=== PATIENT | female | born 1985 | race Caucasian/White ===

== ENCOUNTER 2024-12-07 13:02 | Inpatient (IN) | payer OTHER, SELFPAY ==
--- OUTSIDE RECORDS SUMMARY | 2024-12-07 13:18 | XMS_ITS | Referral Summary ---
Author Organization [facility] Address [address] [place] [address] Care Team Providers Care Locomotive Pipe Fitter Name Role Phone Sophia Christiansen MD Unavailable Sophia Christiansen MD Primary Care Provide r Allergies No known active allergies Medications aspirin 81 mg enteric coated tablet Take 1 tablet (81 mg total) by mouth daily Active venlafaxine XR (EFFEXOR-XR) 37.5 mg 24 hr capsule Take 1 capsule (37.5 mg total) by mouth daily 06/01/2024 Active Active Problems Problem Noted Date Diagnosed Date Low lying placenta nos or wi thout hemorrhage, second trimester 07/26/2024 Overview (07/26/2024): 20 wk sono - breech, posterior LOW LYING placenta 1.9 cm from os, CL 4.4 cm. Plan to recheck placenta early third trimester. Anxiety with depression 05/04/2024 Overview (05/04/2024): Well controlled on Effexor History of pre-eclampsia in prior , currently 05/04/2024 Overview (05/04/2024): Plan ASA 81 mg at 12 weeks. Antepartum multigravida of advanced maternal age 1106/29/2023 Overview (06/28/2024): NIPT - low risk, female. Plan daily ASA 81 mg at 12 weeks with h/o preeclampsia. Refused influenza vaccine 11/17/2018 Anxiety 05/13/2016 Overview (07/04/2023): Effexor XR 75 mg Contusion of ankle 06/19/2004 Overview (11/25/2016): Ankle contusion Supraventricular tachycardia 06/19/2001 Overview (11/25/2016): Supraventricular tachycardia Estimated Date of Delivery Comme nts Yes 12/05/2024 Based on last me nstrual period of 02/29/2024 (Exact Date) Resolved Problems Problem Noted Date Diagnosed Date Resolved Date Missed 07/04/2023 05/31/2024 Pre-eclampsia in third trimester 05/09/2019 06/21/2019 Supervision of high-risk pre gnancy, unspecified trimester 02/19/2019 06/21/2019 Overview (02/28/2019): Consult from Dr. Sophia Christiansen. Continue routine care with Dr. Christiansen, return for growth ultrasound in 4 weeks. No further MFM visits scheduled. Poor growth affecting management of mother, antepartum 02/13/2019 06/21/2019 Overview (04/09/2019): EFW 6% with primary OB. Repeat here 29%. No evidence of IUGR. Last sono 03/28 - 47% Immunizations Immunization Administration Dates Next Due Influenza, Quadrivalent, Spl it, Preservative Free, Intramuscular 05/13/2016 Influenza, Unspecified 11/17/2018(Deferr ed: Patient Refused),11/17/2018(Deferred: Patient Refused),08/22/2017(Deferred: Patient Refused),08/22/2017(Deferred: Patient Refused) Tdap 02/26/2019,08/10/2017 Social History Tobacco Use Types Packs/Day Years Used Date Smoking Tobacco: Former Cigarettes 1 8 2 006 - 2013 Smokeless Tobacco: Never Tobacco Cessation:Counseling Given: Not Answered Comments:Smoking History Packs/day: 1 Packs Alcohol Use Standard Drinks/Week Comments Not Currently 0 (1 standard drink = 0.6 oz pur e alcohol) AUDIT-C Answer Date Recorded Frequency of Alcohol Consumption Not on file 07/05/2023 Q2: How many drinks containi ng alcohol do you have on a typical day when you are drinking? Patient does not drink Frequency of Binge Drinking Not on file 06/22 Overall Financial Resource Strain (CARDIA) Answe r Date Recorded How hard is it for you to pa y for the very basics like food, housing, medical care, and heating? Not hard at all 05/31/2024 PHQ-2 Answer Date Recorded PHQ-2 Score 0 04/12/2019 Hunger Vital Sign Answer Date Recorded Within the past 12 months, y ou worried that your food would run out before you got the money to buy more. Never true 05/31/20 24 Within the past 12 months, t he food you bought just didn't last and you didn't have money to get more. Never true 05/31/2024 PRAPARE - Transportation Answer Date Re corded In the past 12 months, has l ack of transportation kept you from medical appointments or from getting medications? No 05/22 In the past 12 months, has l ack of transportation kept you from meetings, work, or from getting things needed for daily living? No 05/31/2024 Housing Stability Vital Sign Answer Ezio e Recorded In the last 12 months, was t here a time when you were not able to pay the mortgage or rent on time? No 05/31/2024 In the past 12 months, how m any times have you moved where you were living? 1 05/31/2024 At any time in the past 12 m [facility], were you homeless or living in a custodial (including now)? No 05/31/2024 Personal Safety Answer Date Recorded Have you ever been in or are you currently in a harmful physical or emotional relationship or is someone making you feel afraid or unsafe? 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 Gender Identity Not on file Sexual Orientation Not on file Occupation Industry Job Start Date Job End Date [employer] Not on file Not on file Not on f ile Last Filed Vital Signs Vital Sign Reading Time Taken Comments Blood Pressure 110/78 07/26/2024 2:38 PM BAG MACHINE ADJUSTER Pulse 75 07/07/2023 9:30 AM BAG MACHINE ADJUSTER Temperature 36.6 C (97.8 F) 07/07/2023 8:59 AM BAG MACHINE ADJUSTER Respiratory Rate 20 07/07/2023 9:30 AM BAG MACHINE ADJUSTER Oxygen Saturation 100% 07/07/2023 8:59 AM BAG MACHINE ADJUSTER Inhaled Oxygen Concentration - - Weight 71.2 kg (157 lb) 07/26/2024 2:38 PM BAG MACHINE ADJUSTER Height 167.6 cm (5' 6 ) 07/07/2023 6:50 AM BAG MACHINE ADJUSTER Body Mass Index 25.34 07/07/2023 6:50 AM BAG MACHINE ADJUSTER Plan of Treatment Not on file Procedures Procedure Name Priority Date/Time Associated Diagnosis Comments HEPATITIS C ANTIBODY Routine 05/30/2024 2:26 PM CDT Encounter for supervision of other normal , first trimester 10 weeks gestation of PAP AND HIGH RISK HPV, REFLEX TO GENOTYPING Routine 01/24/2023 9:20 AM CDT Routine cervical smear from Last 3 Months or Most Recently Relevant to Health Maintenance Results * Hepatitis C antibody Blood (05/30/2024 2:26 PM CDT) Hep C Ab NON-REACTI VE NON-REACT CANDACE [facility] Comment: HCV antibody was non-reactive. There is no laboratory evidence of HCV infection. In most cases, no further action is required. However, if recent HCV exposure is suspected, a test for HCV RNA (test code 64854) is suggested. For additional information please refer to http://education.[employer].RedHelper/faq/GOL73j3 (This link is being provided for informational/ educational purposes only.) Blood 05/30/2024 2:26 PM CDT 05/30/2024 2:26 PM CDT Sophia Christiansen MD LAB MICROBIOLOGY - GE NERAL ORDERABLES Final Result [facility] [address] [place] [address] * Pap and High Risk HPV, reflex to Genotyping (01/24/2023 9:20 AM CDT) Thin prep (Pap test) 01/24/2023 9:20 AM CDT 01/24/2023 9:20 AM CDT Narrative PATHOLOGY CH - 01/26/2023 1:26 PM CDT [facility] Department of Pathology [address] [place] [address] Final Report with Addendum Note to Patients: This report may contain a detailed description of human tissue sent by a health care provider to the laboratory for pathologic evaluation. The content of this report is essential for diagnosis and may provide important critical findings. This information may be unfamiliar to patients to review without a medical professional present. It is advised that the patient review this report in the presence of a health care provider who can answer questions and explain the details. Patient Name: RICARDA MANZANO Address: [address] [place] [id number] Gender: F : 1985 (Age: 38) Service: Location: N : [id number] [facility] #: [id number] Patient Type: SPECIMEN Taken: 01/24/2023 Received: 01/24/2023 Accessioned:: 01/25/2023 Reported: 01/26/2023 Physician(s): MD Sophia Goldstein MD Diagnosis: SOURCE OF SPECIMEN SCREENING THIN PREP IMAGED PAP w/ HPV: STATEMENT OF ADEQUACY - Satisfactory for evaluation; endocervical/transformation zone component present GENERAL CATEGORIZATION: - Negative for intraepithelial lesion or malignancy MECHE Richmond(ASCP) Report Electronically Reviewed and Signed Out By MECHE Richmond(ASCP) 01/26/2023 13:26:31Addenda: HPV Test Interpretation NEGATIVE for types 16, 18, 31, 33, 35, 39, 45, 51, 52, 56, 58, 59, 66 and 68. Test performed utilizing Gen-Probe Aptima assay. MECHE Gan(ASCP)Report Electronically Reviewed and Signed Out By MECHE Gan(ASCP) 01/25/2023 16:42:28 Specimen(s) Received: A: SCREENING THIN PREP IMAGED PAP w/ HPV Clinical History: Contraceptive History: IUD The Pap test is a screening test used to aid in the detection of cervical cancer and its precursors. It should not be the sole means by which malignant and premalignant lesions are diagnosed. Both false negative and false positive results may occur. It also has poor sensitivity for the detection of endometrial lesions and should not be used to evaluate suspected endometrial abnormalities. For these reasons it is most important to obtain Pap tests at regular intervals. The performance characteristics of some immunohistochemical stains, fluorescence in-situ hybridization tests and immunophenotyping by flow cytometry cited in this report (if any) were determined by the Surgical Pathology Department at [facility] as part of an ongoing quality control inspector heading program and in compliance with federally mandated regulations drawn from the Clinical Laboratory Improvement Act of 1988 (CLIA '88). Some of these tests rely on the use of analyte specific reagents and are subject to specific labeling requirements by the US Food and Drug Administration. Such diagnostic tests may only be performed in a facility that is certified by the Department of Health and Human Services as a high complexity laboratory under CLIA '88. The FDA has determined that such clearance or approval is not necessary. This test is used for clinical purposes. It should not be regarded as investigational or for research. Nevertheless, federal rules concerning the medical use of analyte specific reagents require that the following disclaimer be attached to the report: This test was developed and its performance characteristics determined by the Surgical Pathology Department [facility]. It has not been cleared or approved by the U. S. Food and Drug Administration. Sophia Christiansen MD LAB CYTOLOGY ORDERABL ES Final Result PATHOLOGY [address] [place] [address] from Last 3 Months or Most Recently Relevant to Health Maintenance Insurance [facility] Advance Directives For more information, please contact: [phone] * Full Code (Latest Code Status on File) Date Activated Date Inactivated Comments 05/10/2019 2:47 AM 05/12/2019 4:28 PM * Full Code Date Activated Date Inactivated Comments 05/09/2019 3:48 PM 05/10/2019 2:47 AM Full CPR in case of cardiopulmonary arrest Care Teams Locomotive Pipe Fitter Relationship Specialty Start Date End Date Sophia Christiansen MD [address] [address] PCP - General Obstetrics and Gynecology 01/03/22 Sophia Christiansen MD [address] [address] Oil Processing Technician Obstetrics and Gynecology 02/16/19
--- OUTSIDE RECORDS SUMMARY | 2024-12-07 13:18 | XMS_ITS | Encounter Summary ---
Author Organization [facility] Address [address] [place] [address] Phone Care Team Providers Care Filter Operator Name Role Phone Arnulfo To MD Primary Care Provider + [phone] Sophia Christiansen MD Unavailable [phone] Sophia Christiansen MD Primary Care Provide r Encounter Details Date Type Department Care Team (Late st Contact Info) Description 11/28/2017 Orders Only [facility] ProviderRenan MD [address] [place] [address] Social History Tobacco Use Types Packs/Day Years Used Date Smoking Tobacco: Former Cigarettes 1 8 2013 Smokeless Tobacco: Never Comments:Smoking History Pac ks/day: 1 Packs Alcohol Use Standard Drinks/Week Comments Yes 0 (1 standard drink = 0.6 oz pur e alcohol) Comments No Sex and Gender Information Value Date Recorded Sex Assigned at Not on file Legal Sex Female 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 us Historical Provider LAB CYTOLOGY ORDERABLES F inal Result documented in this encounter Visit Diagnoses Not on filedocumented in this encounter Care Teams Filter Operator Relationship Specialty Start Date End Date Arnulfo To MD [address] [place] [address] PCP - General 05/13/16 01/02/22 Sophia Christiansen MD [address] [address] PCP - General Obstetrics and Gynecology 01/03/22 Sophia Christiansen MD [address] [address] Manager Scientific Obstetrics and Gynecology 02/16/19 documented as of this encounter
--- OUTSIDE RECORDS SUMMARY | 2024-12-07 13:18 | XMS_ITS | Encounter Summary ---
Author Organization [facility] [facility] Address [address] [place] [address] Phone Care Team Providers Care Double Spindle Shaper Operator Name Role Phone Arnulfo To MD Primary Care Provider + [phone] Sophia Christiansen MD Unavailable [phone] Sophia Christiansen MD Primary Care Provide r Encounter Details Date Type Department Care Team (Late st Contact Info) Description 09/22/2017 Orders Only [facility] ProviderRenan MD [address] [place] [address] Social History Tobacco Use Types Packs/Day Years Used Date Smoking Tobacco: Former Cigarettes 1 8 2 2013 Smokeless Tobacco: Never Comments:Smoking History Pac ks/day: 1 Packs Alcohol Use Standard Drinks/Week Comments Yes 0 (1 standard drink = 0.6 oz pur e alcohol) Comments Yes Sex and Gender Information Value Date Recorded Sex Assigned at Not on file Legal Sex Female 11:06 AM MANAGER TRACK Gender Identity Not on file Sexual Orientation Not on file 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 us Historical Provider LAB BLOOD ORDERABLES Shivani l Result documented in this encounter Visit Diagnoses Not on filedocumented in this encounter Care Teams Double Spindle Shaper Operator Relationship Specialty Start Date End Date Arnulfo To MD [address] [place] [address] PCP - General 05/13/16 01/02/22 Sophia Christiansen MD [address] [address] PCP - General Obstetrics and Gynecology 01/03/22 Sophia Christiansen MD [address] [place] [address] Photoengraving Retoucher Obstetrics and Gynecology 02/16/19 documented as of this encounter
--- OUTSIDE RECORDS SUMMARY | 2024-12-07 13:18 | XMS_ITS | Clinical Summary ---
Author Organization [facility] [facility] Address [address] [place] [address] Phone Care Team Providers Care Principal Investigator Name Role Phone Provider, None Primary Care Provider Unavailabl e Allergies No known active allergies Medications Vit-Fe Fumarate-FA ( VITAMIN PO) Take 1 Tab by mouth daily. Active HYDROcodone-kady taminophen (NORCO) 5-325 MG Tablet Take 1-2 Tabs by mouth every 6 hours as needed for Pain. 10 Tab 8 Active Additional Information Patient not taking.Reported on 03/06/2023 ibuprofen (MOTRIN) 600 MG Tablet Take 1 Tab by mouth every 6 hours as needed for Pain. 30 Tab 8 Active venlafaxine (EFFEXOR-XR) 75 MG CAPSULE SR 24 HR Take 75 mg by mouth. 2 Active Active Problems No known active problems Immunizations Immunization Administration Dates Next Due TDAP Vaccine 08/10/2017 Family History Medical History Relation Name Comments Cancer Father Heart Disease Father Hypertension Father Hypertension Mother Stroke Mother Relation Name Status Comments Father Mother Social History Tobacco Use Types Packs/Day Years Used Date Smoking Tobacco: Former Cigarettes Q uit: 08/22/2013 Smokeless Tobacco: Never Tobacco Cessation:Counseling Given: No Alcohol Use Standard Drinks/Week Comments Yes 0 (1 standard drink = 0.6 oz pur e alcohol) Sexually Active Control Partners Comments Yes Male Comments No Sex and Gender Information Value Date Recorded Sex Assigned at Not on file Legal Sex Female 12:35 PM CDT Gender Identity Not on file Sexual Orientation Not on file Last Filed Vital Signs Vital Sign Reading Time Taken Comments Blood Pressure 120/78 03/06/2023 10:29 AM CDT Pulse 85 03/06/2023 10:29 AM CDT Temperature 37.2 C (99 F) 03/06/2023 10:29 AM CDT Respiratory Rate 18 03/06/2023 10:29 AM CDT Oxygen Saturation 96% 03/06/2023 10:29 AM CDT Inhaled Oxygen Concentration - - Weight 70.3 kg (155 lb) 10/21/2017 9:46 PM HOTEL MAINTENANCE WORKER Height 167.6 cm (5' 6 ) 10/21/2017 9:46 PM HOTEL MAINTENANCE WORKER Body Mass Index 25.02 10/21/2017 9:46 PM HOTEL MAINTENANCE WORKER Plan of Treatment Health Maintenance Due Date Last Done Comments Hepatitis C Virus (HCV) Screening 1985 Hepatitis B Immunization (1 of 3 - 19+ 3-dose series) 2005 Pap Smear 2007 Cervical Cancer Screening (CCS) 01/21/2016 HPV/Cotest 01/21/2016 Influenza Immunization (#1) 2024 05/13/2016 SARS-COV-2 Immunization (2023- season) 2024 Respiratory Syncytial Virus (RSV) Immunization (Adult) (1 - 1-dose 75+ series) 2061 DTaP/Tdap/Td Immunization Discontinued 2018, 08/10/2017 Meningococcal Immunization (ACWY) Aged Out No longer eligible based on patient's age to complete this topic Pneumococcal Immunization Combined Aged Out No longer eligible based on patient's age to complete this topic Rotavirus Immunization Aged Out No lo nger eligible based on patient's age to complete this topic Insurance [facility] Advance Directives * Full Code (Latest Code Status on File) Date Activated Date Inactivated Comments 10/21/2017 9:47 PM 10/21/2017 10:47 PM CPR-Full Vivienne tment: FULL ARREST: Attempt Resuscitation/CPR wit intubation and mechanical ventilation. PRE-ARREST: Use entire range of life support measures to stabilize the patient. Care Teams Principal Investigator Relationship Specialty Start Date End Date Provider, Loy BRAGG PCP - General 10/21/17
--- OUTSIDE RECORDS SUMMARY | 2024-12-07 13:18 | XMS_ITS | Clinical Summary ---
Author Organization [facility] Address [address] [place] [address] Care Team Providers Care Unloader Operator Name Role Phone Sophia Christiansen MD Unavailable [...] Refused),08/22/2017(Deferred: Patient Refused),08/22/2017(Deferred: Patient Refused) Tdap 02/26/2019,08/10/2017 Surgical History Surgery Date Site/Laterality Comments ANKLE SURGERY 08/22/2002 - 08/21/2003 Left DILATION AND CURETTAGE OF UTERUS 08/22/2022 - 08/21/2023 missed Medical History Medical History Date Comments Hx Other Medical 1999 SVT; Comments: MACY 06/19/2015 - Abnormal Pap smear of cervix 2014 LSI L. Cryoablation. Repeat Pap ASCUS, HPV neg. Tachycardia Anxiety with depression Prozac i n 2019 changed to Effexor. Alcohol abuse 2021 Rehab Chlamydia PONV (postoperative nausea and vomiting) Motion sickness Family History Medical History Relation Name Comments Heart attack Father Heart disease Father Cardiovascular disease; [place] 60s Hypertension Father Testicular cancer Father Cancer, te sticular; bowel perforation Father cause of d eath Hypertension Mother Hypertension; Stroke Mother Stroke; late 60 s Relation Name Status Comments Father Mother (Age 73) Social History Tobacco Use Types Packs/Day Years [...] any time in the past 12 m [facility], were you homeless or living in a long term (including now)? 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 2017 - PROM, cervidil/pit ocin augmentation. Peripartum mild preeclampsia. 2' midline lac. 4. 2018 - pitocin induction for preeclampsia. Summary Episode Dates Number of Fetuses Estimated Date of Delivery 05/02/2024 - Present (12/07/2024) 12/05/2024 (set by Sophia Christiansen MD on 05/02/2024 based on Last Menstrual Period on 02/29/2024 (Exact Date)) Dating Summary Based On [place] Diff Last Menstrual Period on 02/29/2024 (Exact Date) 12/05/2024 Working Ultrasound on 05/02/2024 12/02/2024 +3d GA:9w3d Vitals Pregravid Weight Height TWG (As of 12/07/2024) Pregrav id BMI 67.1 kg (148 lb) 4.082 kg (9 lb) Date GA Fund Present FHR Mvmt BP Weight Edema Alb Glu Ket Dil/ Eff/Sta 05/02/2024 9w0d 118/80 67.1 kg (148 lb) 0// Notes Progress Notes - Routine Pre favian - 07/26/2024 - GA:21w1d 07/26/2024 - 21w1d - Sophia Christiansen MD Sono today - breech, posterior LOW LYING placenta 1.9 cm from os, CL 4.4 cm, FRANCO 10.3, EFW 399 g (42%). Denies VB or cramping. Discussed activity and bleeding precautions. Plan to recheck placenta early third trimester. ACUTE DIALYSIS Progress Notes - Routine Pre fvaian - 06/28/2024 - GA:17w1d 06/28/2024 - 17w1d - Sophia Christiansen MD Has maybe felt some flutters of movement. Continues unisom, which helps sleep as well as nausea. Anatomy scan next visit. ACUTE DIALYSIS Progress Notes - Routine Pre - 05/31/2024 - GA:13w1d 05/31/2024 - 13w1d - Sophia Christiansen MD Feeling well overall. Nausea is manageable with unisom q HS. NIPT is pending from lab draw yesterday. Other labs are normal to date (urine and ABO pending). Progress Notes - Initial Pre - 05/02/2024 - GA:9w0d 05/02/2024 - 9w0d - Sophia Christiansen MD New OB -- [place] 12/05 by definite LMP c/w sono today. Advised frequent small meals and B6/unisom for N/V. OB labs ordered with GC/CT. -- AMA - reviewed risks including PIH, GDM, aneuploidy. Start ASA 81 mg daily at 12 weeks. Discussed genetic screening options. NIPT ordered to complete after 10 weeks. -- h/o pre-eclampsia. Plan for ASA, as above. -- Anxiety/depression - last January changed from Effexor XR daily to Effexor 25 mg BID. Tolerating well. Reviewed risks of poorly controlled maternal health v medication exposure (pulm HTN, ODILIA seen with SSRIs). Continue current management. Last Filed Vital Signs Vital Sign Reading Time Taken Comments Blood Pressure 110/78 07/26/2024 2:38 PM RN ACUTE DIALYSIS Pulse 75 07/07/2023 9:30 AM RN ACUTE DIALYSIS Temperature 36.6 C (97.8 F) 07/07/2023 8:59 AM RN ACUTE DIALYSIS Respiratory Rate 20 07/07/2023 9:30 AM RN ACUTE DIALYSIS Oxygen Saturation 100% 07/07/2023 8:59 AM RN ACUTE DIALYSIS Inhaled Oxygen Concentration - - Weight 71.2 kg (157 lb) 07/26/2024 2:38 PM RN ACUTE DIALYSIS Height 167.6 cm (5' 6 ) 07/07/2023 6:50 AM RN ACUTE DIALYSIS Body Mass Index 25.34 07/07/2023 6:50 AM RN ACUTE DIALYSIS Plan of Treatment Health Maintenance Due Date Last Done Comments Varicella Vaccines (1 of 2 - 13+ 2-dose series) 1999 Hepatitis B Screening 01/21/2004 Depression Screening 11/18/2019 11/17/2018 Cervical Cancer Screening 01/25/2024 01/24/2023 Regular Well Visit/Exam 18-64 02/08/2025 02/09/2024, 01/24/2023, 11/04/2021, Additional history exists DTaP/Tdap/Td Vaccine (3 - Td or Tdap) 02/26/2029 02/26/2019, 08/10/2017 Influenza Vaccine Discontinued 05/13/2016 Hepatitis C Screening Completed 05/30/2024 , 06/23/2023, 09/28/2018, Additional history exists HPV Vaccines Aged Out No longer eligi ble based on patient's age to complete this topic Pneumococcal vaccine <65 Aged Out No longer eligible based on patient's age to complete this topic Procedures Procedure Name Priority Date/Time Associated Diagnosis [...] Hep C Ab NON-REACTI VE NON-REACT CAND[facility] [address] Comment: HCV antibody was non-reactive. There is no laboratory evidence of HCV infection. In most cases, no further action is required. However, if recent HCV exposure is suspected, a test for HCV RNA (test code 56648) is suggested. For additional information please refer to http://education.OneCubicle/faq/DDD84t6 (This link is being provided for informational/ educational purposes only.) Blood 05/30/2024 2:26 PM CDT 05/30/2024 2:26 PM CDT us Sophia Christiansen MD LAB MICROBIOLOGY - NERAL ORDERABLES Final Result [facility] [address] [id number] * Pap and High Risk HPV, reflex to Genotyping (01/24/2023 9:20 AM CDT) Thin prep (Pap test) 01/24/2023 9:20 AM CDT 01/24/2023 9:20 AM CDT Narrative PATHOLOGY CH - 01/26/2023 1:26 PM CDT [facility] Department of Pathology [address] [place], [place] [id number] Final Report with Addendum Note to Patients: [...] questions and explain the details. Patient Name: PRINCE MANZANO Address: [address] [place] [id number] Gender: F : 1985 (Age: 38) Service: Location: [facility] : [id number] Hospital #: [id number] Patient Type: SPECIMEN Taken: 01/24/2023 Received: 01/24/2023 Accessioned:: 01/25/2023 Reported: 01/26/2023 Physician(s): MD Sophia Goldstein MD Diagnosis: SOURCE OF SPECIMEN SCREENING THIN PREP IMAGED PAP w/ HPV: STATEMENT OF ADEQUACY - Satisfactory for evaluation; endocervical/transformation zone component present GENERAL CATEGORIZATION: - Negative for intraepithelial lesion or malignancy MECHE Richmond(ASCP) Report Electronically Reviewed and Signed Out By LISSETT RichmondASC) 01/26/2023 13:26:31Addenda: HPV Test Interpretation NEGATIVE for types 16, 18, 31, 33, 35, 39, 45, 51, 52, 56, 58, 59, 66 and 68. Test performed utilizing Gen-Probe Aptima assay. MECHE Gan(ASCP)Report Electronically Reviewed and Signed Out By LISSETT GanASCP) 01/25/2023 16:42:28 Specimen(s) Received: A: SCREENING THIN [...] determined by the Surgical Pathology Department at [facility] as part of an ongoing manager quality compliance program and in compliance with federally mandated [...] characteristics determined by the Surgical Pathology Department [facility]. It has not been cleared or approved by the U. S. Food and Drug Administration. Sophia Christiansen MD LAB CYTOLOGY ORDERABL ES Final Result [facility] [address] [place] [address] from Last 3 Months or Most Recently Relevant to Health Maintenance Insurance [facility] CHOICE PLUS [facility] HMO/PPO Address: [address] [address] [place] [phone] [facility] CHOICE PLUS [facility] HMO/PPO Address: [address] [address] [place] [address] [facility] CHOICE PLUS [facility] HMO/PPO Address: [address] [address] [place] [phone] Advance Directives For more information, please contact: [phone] * Full Code (Latest Code Status on File) Date Activated Date Inactivated Comments 05/10/2019 2:47 AM 05/12/2019 4:28 PM * Full Code Date Activated Date Inactivated Comments 05/09/2019 3:48 PM 05/10/2019 2:47 AM Full CPR in case of cardiopulmonary arrest Care Teams Unloader Operator Relationship Specialty Start Date End Date Sophia Christiansen MD [address] [place] [id number] PCP - General Obstetrics and Gynecology 01/03/22 Sophia Christiansen MD [address] [place] [id number] Assistant Track And Field Coach Obstetrics and Gynecology 02/16/19
[2024-12-07 14:05] LABS: Basophils Percent Auto 0.4 % (0.2-1.2); Eosinophils Percent Auto 0.3 % (0-4.4); Hematocrit 30.9 % (37.0-47.0); Hemoglobin 9.5 g/dL (12.0-15.0); Immature Granulocyte Absolute 0.05 K/mm3 (0.00-0.031); Immature Granulocyte Percent A 0.6 % (0-0.5); Immature Platelet Fraction Pct 15.8 % (0.9-11.2); Lymphocytes Absolute Auto 0.84 K/mm3 (0.9-3.2); Lymphocytes Percent Auto 10.7 % (18.3-44.2); Mean Corpuscular HGB Conc 30.7 g/dl (32-36); Mean Corpuscular Hemoglobin 24.2 pg (26-34); Mean Corpuscular Volume 78.8 fl (80-100); Mean Platelet Volume 12.5 fl (7.4-10.4); Monocytes Absolute Auto 0.4 K/mm3 (0.1-0.6); Monocytes Percent Auto 4.6 % (2.6-8.5); Neutrophils Absolute Auto 6.6 K/mm3 (1.3-6.7); Neutrophils Percent Auto 83.4 % (45.5-73.1); Platelet Count Result 134 k/mm3 (150-375); Red Blood Count 3.92 M/mm3 (4.2-5.4); Red Cell Distribution Width 13.8 % (11.5-14.5); White Blood Count 7.9 K/mm3 (4.5-10.0)
[2024-12-07 14:20] VITALS: BMI 28.3
--- NOTE | 2024-12-07 14:21 | LDADM ---
This patient, Ricarda Dimas, was admitted to Labor/Delivery/Recovery 104 on 12/07/24 at 13:02. Plans for labor, pain management and were discussed with patient. Patient/family oriented to hospital policies and general routines including ID bracelet, bed and alarms, visiting hours, pain management, procedures, bathroom and other care routines, personal items, smoking policy, room service/diet and guest tray routines, security routines, and visiting hours. Patient/Family are encouraged to report perceived risks to care and to ask questions if they do not understand what they are told or what they should do. See OBIX for further documentation.
[2024-12-07 14:52] LABS: Syphilis IgG/IgM Antibody Negative (Negative)
[2024-12-07 14:58] LABS: HIV 1/2 Ab P24 Ag Result Negative (Negative)
[2024-12-07] MEDS: TERBUTALINE SULFATE 1 MG/ML VIAL 0.25 MG SUB-Q (15:37)
[2024-12-07] MEDS: OXYTOCIN 30 UNITS/NS 500 ML 30 UNITS/500 ML BAG 999 UNITS IV CONT (15:58)
--- NOTE | 2024-12-07 16:12 | WPDOBADMIT ---
Obstetrics - Admit Note Admission Note: record reviewed. No pertinent additions to the history and/or any subsequent changes in the physical findings that are not consistent with the expected course of the were found. Additions to the history and/or subsequent changes in the physical findings follow. Here in labor at 40 2/7 wks. 8 cm on my arrival and AROM with meconium noted. No epidural and coping well with contractions.
--- NOTE | 2024-12-07 16:13 | PM.OBPRVD ---
OB - Vaginal Delivery Note Procedure Delivery date: 12/07/24 Induction method: None Delivery monitor: External FHT and External Uterine Route of delivery: Episiotomy description: None Laceration Description: Perineal - 2nd Degree (small) Delivery repair: vicryl (3-0) Specimen: Yes (placenta) Quantitative Blood Loss (ml): 200 Anesthesia type: Local Disposition: Floor Complications: No immediate complications Narrative: OP and patient tiring with pushing. Attempted to manually rotated several times without success. Contractions q 1-1 1/2 min. Terbutaline given to space contractions and give patient and a break. Moved to pushing hands and knees with head of bed elevated which was successful and less tiring for patient. [place] Baby Date of : 12/07/24 Gestational Age by Date: 40 (40 2/7) gender: Female Weight (pounds): 9 presentation: vertex position: Right Occiput Posterior Placenta delivery description: Spontaneous Cord Vessel Description: 3 Vessels and Delayed Cord Clamping score one minute: 7 score five minutes: 8
--- NOTE | 2024-12-07 16:21 | P.DS_ITS ---
DS: Admitting Diagnosis Discharge Date 12/09/23 Admitting Diagnosis labor at 40 2/7 wks DS: Discharge Diagnosis Discharge Diagnosis (1) (normal spontaneous vaginal delivery): Code(s): O80 - Encounter for full-term uncomplicated delivery Status: Acute (2) Preeclampsia: Code(s): O14.90 - Unspecified pre-eclampsia, unspecified trimester Status: Acute (3) Anemia: Code(s): D64.9 - Anemia, unspecified Status: Acute OB - DS: Summary OB Procedures : Ultrasound OB Procedures Intrapartum: Spontaneous Vag Delivery OB Procedures: : None Peripartum Data Infant Delivery Method: Natural Vaginal Laceration Description: Perineal - 2nd Degree (small) Episiotomy description: None complications: none Status at Discharge Functional status at discharge: independent ambulation Overall status at discharge: patient is progressing back to baseline Time Spent with Patient Time attestation: Total time spent providing and/or coordinating discharge services: DS: Data Data Completed and Pending Labs on day of discharge: Labs from last 24 hours 12/07/24 13:57 WBC 7.9 RBC 3.92 L Hgb 9.5 L Hct 30.9 L MCV 78.8 L MCH 24.2 L MCHC 30.7 L RDW 13.8 Plt Count 134 L MPV 12.5 H Immature Gran % (Auto) 0.6 H Neut % (Auto) 83.4 H Lymph % (Auto) 10.7 L [place] % (Auto) 4.6 Eos % (Auto) 0.3 Baso % (Auto) 0.4 Lymph # (Auto) 0.84 L [place] # (Auto) 0.4 Eos # (Auto) 0.0 Baso # (Auto) 0.0 Abs Immat Gran (auto) 0.05 H Absolute Neuts (auto) 6.6 Absolute Nucleated RBC 0.000 Nucleated RBC % 0.0 % Immature Plt Fraction 15.8 H Syphilis IgG/IgM Ab Negative HIV 1&2 Ab/P24 Ag 4thGn Negative Blood Type A Positive Antibody Screen Negative Discharge Plan Discharge Attending physician on discharge: Tank Borja Discharging Clinician: Enma Vargas Anticipated Discharge Date/Time: 12/09/24 16:22 Patient Disposition: Home Activity: may shower Diet: regular Patient Instructions: Antibiotic Form Patient Language: Syriac Stand Alone Forms: General Discharge Information Follow-up/Referrals: Tank Borja MD [Physician] - Discharge Medications: New polysaccharide iron complex 150 mg iron Capsule 150 mg PO BIDWM Qty: 60 2RF Continued venlafaxine 75 mg tablet 75 mg PO DAILY Date of admission: 12/07/24 13:02 Primary Care Provider: PHYSICIAN,ASSISTANT MEDIA BUYER Admitting Provider: Tank Borja Attending physician on admission: Tank Borja Condition: Stable
[2024-12-07] MEDS: OXYTOCIN 30 UNITS/NS 500 ML 30 UNITS/500 ML BAG 125 UNITS IV CONT (16:26)
[2024-12-07] MEDS: BENZOCAINE 20% AER SPR (*SP) 56 GM CAN 1 SPRAY TOPICAL (17:32)
[2024-12-07] MEDS: WITCH HAZEL 40 PADS 1 PAD TOPICAL (17:32)
[2024-12-07] MEDS: IBUPROFEN 600 MG TABLET PO (17:33)
[2024-12-07 18:11] LABS: Alanine Aminotransferase 18 U/L (6-35); Albumin Level 3.5 g/dL (3.5-5.1); Alkaline Phosphatase 221 U/L (38-126); Anion Gap 11 mmol/L (4-12); Aspartate Amino Transferase 39 U/L (14-36); Bilirubin,Total 0.4 mg/dL (0.2-1.3); Blood Urea Nitrogen 11 mg/dL (7-17); Calcium 8.6 mg/dL (8.4-10.2); Carbon Dioxide 16 mmol/L (22-30); Chloride 106 mmol/L (98-107); Estimated CRCL calculation 107 ml/min; Estimated Glomerular Filt Rate > 60; Glucose 84 mg/dL (65-110); Potassium 4.2 mmol/L (3.4-5.0); Sodium 133 mmol/L (137-145); Uric Acid 5.5 mg/dL (2.5-7.5)
--- NOTE | 2024-12-07 19:10 | OBPPTRN ---
Patient transferred to post room #290 via wheelchair. Support person present. Oriented to unit, room, information board, rooming in, admission packet and security measures. Patient verbalizes understanding.
--- NOTE | 2024-12-07 19:15 | PC.NURSE ---
Patient set up with hospital pump and pump kit. Nipples measured to ensure accurate sizing of flanges. patient has no discomfort when starting to pump, she was instructed to pump every 3 hours for 15 minutes to keep up with accurate feeding schedule of a and supply.
[2024-12-07 19:55] VITALS: BP 153/97; PULSE 80; RESP 16; TEMP 37.1; O2SAT 98
[2024-12-07] MEDS: ACETAMINOPHEN 325 MG TABLET 650 MG PO (20:17)
[2024-12-08] MEDS: IBUPROFEN 600 MG TABLET PO ×2 (00:31→08:02)
[2024-12-08 00:42] VITALS: BP 144/93; PULSE 81; RESP 16; TEMP 36.8; O2SAT 97
[2024-12-08] MEDS: ACETAMINOPHEN 325 MG TABLET 650 MG PO (04:37)
[2024-12-08 04:38] LABS: Hematocrit 26.2 % (37.0-47.0)
[2024-12-08 08:00] VITALS: BP 132/91; PULSE 99; RESP 17; TEMP 36.6; O2SAT 100
[2024-12-08] MEDS: POLYSACCHARIDE IRON COMPLEX 150 MG CAPSULE PO (08:03)
[2024-12-08] MEDS: DOCUSATE SODIUM 100 MG CAPSULE PO (08:03)
[2024-12-08] MEDS: MULTIVIT/MIN/PREN/FOL AC/IRON TABLET 1 TAB PO (08:03)
[2024-12-08] MEDS: VENLAFAXINE HCL XR 75 MG CAP.ER.24H PO (08:11)
--- NOTE | 2024-12-08 10:21 | PM.OBPNVD ---
OB - PN: Subj Subjective Date/time seen: 12/08/24 10:21 Patient comments: no complaints, pain well controlled and other (no symptoms of preeclampsia) baby status: NICU (on room air with pressure; moving well; normal EEG and labs per mom) [place] feeding status: exclusively breast feeding OB - PN: Obj Data Labs 12/08/24 04:32 12/07/24 13:55 Labs: Laboratory Results - last 24 hr 12/07/24 12/07/24 12/08/24 13:55 13:57 04:32 WBC 7.9 RBC 3.92 L Hgb 9.5 L 8.0 L Hct 30.9 L 26.2 L MCV 78.8 L MCH 24.2 L MCHC 30.7 L RDW 13.8 Plt Count 134 L MPV 12.5 H Immature Gran % (Auto) 0.6 H Neut % (Auto) 83.4 H Lymph % (Auto) 10.7 L [place] % (Auto) 4.6 Eos % (Auto) 0.3 Baso % (Auto) 0.4 Lymph # (Auto) 0.84 L [place] # (Auto) 0.4 Eos # (Auto) 0.0 Baso # (Auto) 0.0 Abs Immat Gran (auto) 0.05 H Absolute Neuts (auto) 6.6 Absolute Nucleated RBC 0.000 Nucleated RBC % 0.0 % Immature Plt Fraction 15.8 H Sodium 133 L Potassium 4.2 Chloride 106 Carbon Dioxide 16 L Anion Gap 11 BUN 11 Creatinine 0.65 L Estim Creat Clear Calc 107 Estimated GFR > 60 Glucose 84 Uric Acid 5.5 Calcium 8.6 Total Bilirubin 0.4 AST 39 H ALT 18 Alkaline Phosphatase 221 H Total Protein 6.0 L Albumin 3.5 Syphilis IgG/IgM Ab Negative HIV 1&2 Ab/P24 Ag 4thGn Negative Blood Type A Positive Antibody Screen Negative OB - PN A/P Assessment and Plan (1) Preeclampsia: Code(s): O14.90 - Unspecified pre-eclampsia, unspecified trimester Status: Acute Assessment and Plan: No symptoms. BP's remain elevated but not in severe range. Will check BP several times per day and call for >150/100. Will call for any symptoms. Follow up next week at office (2) Anemia: Code(s): D64.9 - Anemia, unspecified Status: Acute Assessment and Plan: rec iron BID Plan day: 1 Plan: routine care and discharge home Time Spent With Patient Time: Total time spent is greater than 50% in coordination of care (as documented) at patient's floor/unit and/or counseling patient: Exam : Bimanual exam- vagina & uterus: other (Uterus firm, nt @U)
== END 2024-12-08 11:09 | disposition home or self-care (01) | DRG 807 ==
LOC: ANHLDR 12-11 07:11 → ANHOB2 12-11 07:11
PROVIDERS: Admitting Provider Obstetrics & Gynecology Gynecology; Visit Provider Obstetrics & Gynecology Gynecology
DX: O77.0 Labor and delivery complicated by meconium in amniotic fluid (principal); Z37.0 Single live birth; Z3A.40 40 weeks gestation of pregnancy; O70.1 Second degree perineal laceration during delivery; O90.81 Anemia of the puerperium; D64.9 Anemia, unspecified; O14.95 Unspecified pre-eclampsia, complicating the puerperium
CPT/HCPCS: 36415; 80053; 84550; 85014; 85018; 85025; 85055; 86593; 86703; 86850; 86900; 86901; A9270; G0432; J2590; J3105